=== PATIENT | female | born 2000 | race Caucasian/White ===

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

== ENCOUNTER 2020-02-17 13:25 | Emergency (ER) | payer OTHER, SELFPAY ==
[~2020-02-17] VITALS: Ht 160 cm; Wt 63.5 kg
[2020-02-17 13:40] VITALS: Ht 160 cm; Wt 63.5 kg
[2020-02-17 14:08] VITALS: BP 130/74
== END 2020-02-17 14:08 | disposition home or self-care (01) ==
LOC: ED 13:25
DX: R50.9 Fever, unspecified (principal); M79.10 Myalgia, unspecified site; Z20.828 Contact with and (suspected) exposure to other viral communicable diseases
CPT/HCPCS: U0003-CS

== ENCOUNTER 2020-02-23 14:32 | Emergency (ER) | payer OTHER, SELFPAY ==
[~2020-02-23] VITALS: Ht 160 cm; Wt 63.5 kg
[2020-02-23 14:59] VITALS: BP 127/85
== END 2020-02-23 14:59 | disposition home or self-care (01) ==
LOC: ED 14:32
DX: R05 Cough (principal); R51 Headache; M79.10 Myalgia, unspecified site; Z20.828 Contact with and (suspected) exposure to other viral communicable diseases
CPT/HCPCS: U0003-CS